=== PATIENT | female | born 1985 | race Caucasian/White ===

== ENCOUNTER 2017-03-28 15:29 | Emergency (ER) | END 2017-03-28 19:59 | disposition home or self-care (01) ==

== ENCOUNTER 2018-07-02 17:35 | Emergency (ER) | payer BC, MEDICAID ==
[~2018-07-02] VITALS: Ht 162.6 cm; Wt 56.3 kg
[~2018-07-02 17:35] MED LIST: ONDA8TAB14 PO; TRAM50TA2 PO
[2018-07-02 18:04] VITALS: BP 117/66; PULSE 71; RESP 16; Ht 162.6 cm; Wt 56.3 kg
[2018-07-02] MEDS ORDERED: CYCL10TA7 PO (18:38)
[2018-07-02] MEDS ORDERED: IBUP-1542 PO (18:38)
--- NOTE | 2018-07-02 19:52 | ERD ---
ER Documentation Chief Complaint Chief Complaint LOWER BACK PAIN RADIATING TO FEET HPI Patient is a 32-year-old female who presents the ER for concerns of left-sided pain which started 5 days ago. Patient states the pain is radiating down her left leg. Patient denied falls or trauma. Patient denies any difficulty ambulating. Patient states she did take 1 of her husbands [place] however she developed a rash that she stopped taking it. Patient denies any saddle anesthesia, urinary incontinence or stool incontinence.. Patient denies any chest pain, shortness of breath, fevers, chills, dysuria, urgency or hematuria. No abdominal pain. 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 ROS All systems reviewed and are negative except as per history of present illness. Medications Home Meds Active Scripts Cyclobenzaprine Hcl* (Cyclobenzaprine Hcl*) 10 Mg Tablet, 10 MG PO TID, #20 TAB Prov:AMA RIGGINS PA-C 07/02/18 Ibuprofen* (Motrin*) 600 Mg Tab, 600 MG PO Q6, #30 TAB Prov:AMA RIGGINS PA-C 07/02/18 Ondansetron (Ondansetron Odt) 8 Mg Tab.rapdis, 8 MG PO Q6H PRN for NAUSEA AND/OR VOMITING, #10 TAB Prov:ABDOUL GARCIA MD 03/28/17 Tramadol HCl (Tramadol HCl) 50 Mg Tablet, 50 MG PO Q4 PRN for PAIN, #20 TAB Prov:ABDOUL GARCIA MD 03/28/17 Allergies Allergies: Coded Allergies: hydrocodone (Verified Allergy, Intermediate, RASH, 07/02/18) PMhx/Soc Hx Alcohol Use: No Hx Substance Use: No Hx Tobacco Use: No FmHx Family History: No diabetes Physical Exam Vitals Vital Signs Date Temp Pulse Resp B/P (MAP) Pulse Ox O2 O2 Flow FiO2 Time Delivery Rate 07/02/18 98.1 71 16 117/66 100 18:04 (83) Physical Exam GENERAL: Well-developed, well-nourished female. Appears in no acute distress. HEAD: Normocephalic, atraumatic. EYES: Pupils are equally reactive bilaterally. EOMs grossly intact. No conjunctival erythema. ENT: Moist mucous membranes. No uvula deviation. No kissing tonsils. NECK: Supple. No meningismus. Normal range of motion of the neck. LUNG: Clear to auscultation bilaterally. No rhonchi, wheezing, rales or coarse breath sounds. HEART: Regular rate and rhythm. No murmurs, rubs or gallops. ABDOMEN: No pulsatile masses. No scars, ecchymosis or rashes noted. Soft, nontender, and nondistended. Positive bowel sounds in all four quadrants. No rebound tenderness, no guarding. (-) McBurney's point tenderness. No CVA tenderness. BACK: No midline tenderness. Tender to palpation of the left lumbar paraspinal muscles. Pain is reproducible. Positive straight leg raise on the left. EXTREMITIES: Equal pulses bilaterally. No peripheral clubbing, cyanosis or edema. No unilateral leg swelling. NEUROLOGIC: Alert and oriented. Moving all four extremities without any difficulty. Normal speech. Steady gait. SKIN: Normal color. Warm and dry. No rashes or lesions. Procedures/MDM MEDICAL DECISION MAKING: This is a 32-year-old female who presents with back pain. Vital signs were reviewed. Patient was afebrile. Patient denied any saddle anesthesia, urinary incontinence, bowel incontinence, night pain or recent trauma. Given the patient denied falls or trauma, there is no indication for imaging studies at this time. Patient did have left-sided lumbar paraspinal muscle pain. Patient did have positive straight leg raise on exam. Patient likely has lower back pain with sciatica. Low suspicion for cauda equine syndrome, spinal fractures, epidural abscess, spinal metastases, osteomyelitis, aortic dissection, ruptured or leaking AA, DJD, muscle spasm, pyelonephritis or nephrolithiasis. PRESCRIPTIONS: Cyclobenzaprine, ibuprofen Patient advised not to take muscle relaxant when driving or operating any machinery. Patient is agreeable with this plan. DISCHARGE: At this time, patient is stable for discharge and outpatient management. RICE therapy and ROM exercises were advised to avoid stiffness. I have instructed the patient to follow-up with his/her primary care physician in 1-2 days. I have discussed with the patient the possibility of needing to see an podiatrist orthopedic for further workup and imaging if the pain persists. I have instructed the patient to promptly return to the ER for any new or worsening symptoms including increased pain, swelling, warmth, urinary incontinence, stool incontinence, weakness or numbness. The patient and/or family expressed understanding of and agreement with this plan. All questions were answered. Home care instructions were provided. Disclaimer: Inadvertent spelling and grammatical errors are likely due to EHR/dictation software use and do not reflect on the overall quality of patient care. Also, please note that the electronic time recorded on this note does not necessarily reflect the actual time of the patient encounter. Departure Diagnosis: Primary Impression: Lower back pain Chronicity: acute Back pain laterality: left Sciatica presence: with sciatica Sciatica laterality: sciatica of left side Qualified Codes: M54.42 - Lumbago with sciatica, left side Condition: Fair Patient Instructions: Back Pain W/ Sciatica Referrals: [facility] YOU HAVE RECEIVED A MEDICAL SCREENING EXAM AND THE RESULTS INDICATE THAT YOU DO NOT HAVE A CONDITION THAT REQUIRES URGENT TREATMENT IN THE EMERGENCY DEPARTMENT. FURTHER EVALUATION AND TREATMENT OF YOUR CONDITION CAN WAIT UNTIL YOU ARE SEEN IN YOUR DOCTORS OFFICE WITHIN THE NEXT 1-2 DAYS. IT IS YOUR RESPONSIBILITY TO MAKE AN APPOINTMENT FOR FOLOW-UP CARE. IF YOU HAVE A PRIMARY DOCTOR --you should call your primary doctor and schedule an appointment IF YOU DO NOT HAVE A PRIMARY DOCTOR YOU CAN CALL OUR PHYSICIAN REFERRAL HOTLINE AT IF YOU CAN NOT AFFORD TO SEE A PHYSICIAN YOU CAN CHOSE FROM THE FOLLOWING [facility] [address] [facility]. [facility] [address] [facility]. [facility] [address] [facility] [address] [facility] [facility] [address] [facility]. [facility]. [address] [facility] [facility] YOU HAVE RECEIVED A MEDICAL SCREENING EXAM AND THE RESULTS INDICATE THAT YOU DO NOT HAVE A CONDITION THAT REQUIRES URGENT TREATMENT IN THE EMERGENCY DEPARTMENT. FURTHER EVALUATION AND TREATMENT OF YOUR CONDITION CAN WAIT UNTIL YOU ARE SEEN IN YOUR DOCTORS OFFICE WITHIN THE NEXT 1-2 DAYS. IT IS YOUR RESPONSIBILITY TO MAKE AN APPOINTMENT FOR FOLOW-UP CARE. IF YOU HAVE A PRIMARY DOCTOR --you should call your primary doctor and schedule and appointment IF YOU DO NOT HAVE A PRIMARY DOCTOR YOU CAN CALL OUR PHYSICIAN REFERRAL HOTLINE AT . IF YOU CAN NOT AFFORD TO SEE A PHYSICIAN YOU CAN CHOSE FROM THE FOLLOWING [facility] INSTITUTIONS: [facility] [address] [place] [address] [facility] [address] [place] [address] [facility] [address] [place] [address] Additional Instructions: Llame al doctor MAANA y akilah chloe MAURY PARA DENTRO DE 1-2 DAVIDSON.Dgale a la secretaria que nosotros le instruimos hacer esta maury.Avise o llame si coburn condicin se empeora antes de la maury. Regresa aqui si peor o no mejor. AMA RIGGINS PA-C July 02, 2018 19:52
[2018-07-03] MEDS ORDERED: TRAM50TA2 PO (22:54)
[2018-07-03] MEDS ORDERED: PRED20TA PO (22:54)
== END 2018-07-02 19:42 | disposition home or self-care (01) ==
LOC: E/R 17:35
DX: M54.42 Lumbago with sciatica, left side (principal)
CPT/HCPCS: 99283

== ENCOUNTER 2018-07-03 22:14 | Emergency (ER) | payer BC, MEDICAID ==
[~2018-07-03] VITALS: Ht 162.6 cm; Wt 56.7 kg
[~2018-07-03 22:14] MED LIST changes: +CYCL10TA7 PO; +IBUP-1542 PO
[2018-07-03 22:17] VITALS: BP 115/54; PULSE 80; RESP 16; Ht 162.6 cm; Wt 56.7 kg
[2018-07-03] MEDS ORDERED: KETOROLAC 15 MG INJ IM STA (22:40)
--- NOTE | 2018-07-03 22:53 | ERD ---
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 The patient denies saddle anesthesia. She denies any weakness or numbness or tingling to the face or extremities. She has not had any incontinence or retention of urine or stool. She denies any IV drug use. She denies any direct trauma or injury to the back. The patient symptoms are improved with rest and exacerbated by movement. The patient was evaluated yesterday and diagnosed with sciatica. She was discharged with Flexeril and ibuprofen. She reports that she has been taking these, but her symptoms have persisted. The patient denies feeling sick recently. The patient denies fever or chills. The patient has had no headache or vision changes. The patient does not endorse neck pain. The patient denies lightheadedness or dizziness. The patient has had no chest pain or trouble breathing. The patient denies nausea or vomiting. The patient denies abdominal pain. The patient denies changes to bowel movements or urination. ROS All systems reviewed and are negative except as per history of present illness. Medications Home Meds Active Scripts Cyclobenzaprine Hcl* (Cyclobenzaprine Hcl*) 10 Mg Tablet, 10 MG PO TID, #20 TAB Prov:AMA RIGGINS PA-C 07/02/18 Ibuprofen* (Motrin*) 600 Mg Tab, 600 MG PO Q6, #30 TAB Prov:AMA RIGGINS PA-C 07/02/18 Ondansetron (Ondansetron Odt) 8 Mg Tab.rapdis, 8 MG PO Q6H PRN for NAUSEA AND/OR VOMITING, #10 TAB Prov:ABDOUL GARCIA MD 03/28/17 Tramadol HCl (Tramadol HCl) 50 Mg Tablet, 50 MG PO Q4 PRN for PAIN, #20 TAB Prov:ABDOUL GARCIA MD 03/28/17 Allergies Allergies: Coded Allergies: hydrocodone (Verified Allergy, Intermediate, RASH, 07/02/18) PMhx/Soc History of Surgery: Yes (CHOLY) Anesthesia Reaction: No Hx Neurological Disorder: No Hx Respiratory Disorders: No Hx Cardiac Disorders: No Hx Psychiatric Problems: No Hx Miscellaneous Medical Probl: No Hx Alcohol Use: No Hx Substance Use: No Hx Tobacco Use: No Smoking Status: Never smoker FmHx Family History: No diabetes Physical Exam Vitals Vital Signs Date Temp Pulse Resp B/P (MAP) Pulse Ox O2 O2 Flow FiO2 Time Delivery Rate 07/03/18 98.8 80 16 115/54 100 22:17 (74) Physical Exam Const: No acute distress Head: Atraumatic Eyes: Normal Conjunctiva ENT: Normal External Ears, Nose and Mouth. Neck: Full range of motion. No meningismus. Resp: Clear to auscultation bilaterally Cardio: Regular rate and rhythm Abd: Soft, non tender, non distended. Normal bowel sounds. No palpable pulsatile mass. Skin: No petechiae or rashes Back: No midline or flank tenderness. No lumbar step-offs or deformities. Mild tenderness to the lumbar region and left paraspinal muscles with a positive left straight leg raise at approximately 30 degrees. Ext: No cyanosis, or edema. Neur: Awake and alert Psych: Normal Mood and Affect Results 24 hrs Current Medications Medications Dose Sig/[place] Start Time Status Last (Trade) Ordered Route PRN Stop Time Admin Dose Reason Admin Ketorolac 15 mg ONCE STAT 07/03/18 DC Tromethamine IM 22:40 (Toradol) 07/03/18 22:42 Prednisone 60 mg ONCE ONCE 07/03/18 (Prednisone) PO 23:00 07/03/18 23:01 Procedures/MDM MDM Previous medical records, if available, were reviewed. The patient presents for persistent low back pain radiating into the left leg. I agree with the assessment performed recently at our facility. The patient's symptoms are most consistent with sciatic back pain, potentially related to herniated disc from lifting heavy things while at work. A muscle strain is also possibility. There is no direct trauma or injury. I have very low suspicion for fracture or dislocation. The patient's symptoms are not consistent with cauda equina. The patient's symptoms are not consistent with epidural abscess o r osteomyelitis or other soft tissue infection. I have a low suspicion for an oncologic emergency given her overall presentation. The patient's symptoms are not consistent with abdominal aortic aneurysm, dissection or rupture. The patient does not endorse any urinary complaints. I have very low suspicion for a urinary tract infection, pyelonephritis or nephrolithiasis. TREATMENT/DISPOSITION The patient was treated with Toradol and prednisone in the emergency department. DISCHARGE Upon reevaluation of the patient, symptoms have improved. No emergent diagnoses were identified. At this time, I feel that the patient stable for discharge. The patient was instructed to follow-up with a primary care physician in 1-3 days. The patient will be given strict precautions with which to return to the emergency department. RICE therapy and ROM exercises were advised to avoid stiffness. I have discussed with the patient the possibility of needing to see an orthopedic designer for further workup and imaging if the pain persists. I have instructed the patient to promptly return to the ER for any new or worsening symptoms including increased pain, swelling, warmth, urinary incontinence, stool incontinence, weakness or numbness. The patient and/or family expressed understanding of and agreement with this plan. All questions were answered. Home care instructions were provided. Prescriptions: Prednisone, tramadol The patient's blood pressure was elevated at greater than 120/80 while in the emergency department. The patient was otherwise stable with no evidence of hypertensive urgency or emergency. The patient does not require admission for b lood pressure control. I have discussed with the patient the risks of hypertension. I have instructed the patient to return to the ER for any new or worsening symptoms including chest pain, shortness of breath, headache, blurred vision, confusion, nausea, vomiting or LOC. I have advised the patient to follow up with the primary care physician for outpatient monitoring and treatment for hypertension in 1-3 days. Disclaimer: Inadvertent spelling and grammatical errors are likely due to EHR/dictation software use and do not reflect on the overall quality of patient care. Note that the electronic time recorded on this note does not necessarily reflect the actual time of the patient encounter. Departure Diagnosis: Primary Impression: Lumbar back sprain Encounter type: initial encounter Qualified Codes: S33.5XXA - Sprain of ligaments of lumbar spine, initial encounter Additional Impression: Low back pain Chronicity: acute Back pain laterality: left Sciatica presence: with sciatica Sciatica laterality: sciatica of left side Qualified Codes: M54.42 - Lumbago with sciatica, left side Condition: Stable Patient Instructions: Back Pain W/ Sciatica, Herniated Intervertebral Disc Additional Instructions: Thank you for for coming to [facility] for your care today. Please ask your nurse or provider if you have questions about your care today and do not leave until all your questions have been answered. Please use any medications given as directed and follow-up with your doctor (or the doctor you were referred to) in the next 1-3 days. If you do not have a primary care doctor you may follow up at the [facility] or counts include 234 beds at the [facility] (listed below). You may also use motrin and tylenol as needed for fever and/or pain unless instructed otherwise by your provider or nurse. Indications for more urgent follow-up have been discussed, but you may return to the Emergency Department at ANY time for any worrisome or worsening symptoms. If you have abdominal pain, please know that no test or exam you received is perfect and you should follow up within 8 hours for continued pain. If you had any imaging studies today, such as an X-Ray or CT Scan, these studies will be reviewed later by a radiologist. You will be called if there are important findings that were not identified today, so make sure the contact information you provided at registration is correct. If you received any narcotic pain control medicine today, such as Vicodin, Morphine or Dilaudid, your coordination and judgment may be affected for a number of hours. Please do not drive or operate heavy machinery, and you may want someone to assist you at home. If you were given a prescription for narcotic medication, be aware that it is very addictive- use sparingly and only if necessary. PLEASE SEEK FURTHER EVALUATION AND MANAGEMENT AT YOUR DOCTORS OFFICE WITHIN THE NEXT 1-3 DAYS. IT IS YOUR RESPONSIBILITY TO MAKE AN APPOINTMENT FOR FOLOW-UP CARE. IF YOU HAVE A PRIMARY DOCTOR, PLEASE CALL THEIR OFFICE TO SCHEDULE AN APPOINTMENT FOR FOLLOW UP. IF YOU DO NOT HAVE A PRIMARY DOCTOR YOU CAN CALL OUR PHYSICIAN REFERRAL HOTLINE AT IF YOU CAN NOT AFFORD TO SEE A PHYSICIAN YOU CAN CHOSE FROM THE FOLLOWING [facility] CL[facility]: [facility] [address] [facility] [address] [facility] [address] [facility] [address] [facility] [address] [facility]. [facility] [address] JENNIFFER CLAY MD July 03, 2018 22:53
[2018-07-03] MEDS ORDERED: TRAM50TA2 PO (22:54)
[2018-07-03] MEDS ORDERED: PRED20TA PO (22:54)
[2018-07-03] MEDS ORDERED: predniSONE 20 MG TAB PO ONE (23:00)
== END 2018-07-03 23:17 | disposition home or self-care (01) ==
LOC: FTE 22:14
DX: S33.5XXA Sprain of ligaments of lumbar spine, initial encounter (principal); M54.42 Lumbago with sciatica, left side; X50.0XXA Overexertion from strenuous movement or load, initial encounter; Y92.89 Other specified places as the place of occurrence of the external cause
CPT/HCPCS: 81025; 96372; 99284; J1885; J7512

== ENCOUNTER 2018-07-08 13:00 | Emergency (ER) | payer BC, MEDICAID ==
[~2018-07-08] VITALS: Ht 162.6 cm; Wt 54.9 kg
[~2018-07-08 13:00] MED LIST changes: +PRED20TA PO
[2018-07-08 13:19] VITALS: BP 129/76; PULSE 89; RESP 19; Ht 162.6 cm; Wt 54.9 kg
--- NOTE | 2018-07-08 16:15 | ERD ---
ER Documentation Chief Complaint Chief Complaint was here for back pain 4 days ago, re evaluation HPI 32-year-old female patient with a past medical history of sciatica presents to the ED of wanting a new note for work. 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 Patient reports that her back pain has improved after taking prednisone and tramadol. Denies any chest pain, shortness of breath, nausea, vomiting, diarrhea, neck stiffness, fever, chills, saddle anesthesia, urine or bowel incontinence. ROS All systems reviewed and are negative except as per history of present illness. Medications Home Meds Active Scripts Tramadol HCl (Tramadol HCl) 50 Mg Tablet, 50 MG PO Q6 PRN for PAIN, #10 TAB Prov:JENNIFFER FAM MD 07/03/18 Prednisone* (Prednisone*) 20 Mg Tab, 40 MG PO DAILY for 4 Days, TAB Prov:JENNIFFER FAM MD 07/03/18 Cyclobenzaprine Hcl* (Cyclobenzaprine Hcl*) 10 Mg Tablet, 10 MG PO TID, #20 TAB Prov:AMA RIGGINS PA-C 07/02/18 Ibuprofen* (Motrin*) 600 Mg Tab, 600 MG PO Q6, #30 TAB Prov:AMA RIGGINS PA-C 07/02/18 Ondansetron (Ondansetron Odt) 8 Mg Tab.rapdis, 8 MG PO Q6H PRN for NAUSEA AND/OR VOMITING, #10 TAB Prov:ABDOUL GARCIA MD 03/28/17 Tramadol HCl (Tramadol HCl) 50 Mg Tablet, 50 MG PO Q4 PRN for PAIN, #20 TAB Prov:ABDOUL GARCIA MD 03/28/17 Allergies Allergies: Coded Allergies: hydrocodone (Verified Allergy, Intermediate, RASH, 07/02/18) PMhx/Soc History of Surgery: Yes (CHOLY) Anesthesia Reaction: No Hx Neurological Disorder: No Hx Respiratory Disorders: No Hx Cardiac Disorders: No Hx Psychiatric Problems: No Hx Miscellaneous Medical Probl: No Hx Alcohol Use: No Hx Substance Use: No Hx Tobacco Use: No Smoking Status: Never smoker FmHx Family History: No diabetes, No coronary disease Physical Exam Vitals Vital Signs Date Temp Pulse Resp B/P (MAP) Pulse Ox O2 O2 Flow FiO2 Time Delivery Rate 07/08/18 98.4 89 19 129/76 100 13:19 (93) Physical Exam Const: [id number], well-nourished. In no acute distress. Head: Atraumatic, normocephalic Eyes: Normal Conjunctiva without injection. No purulent discharge. ENT: Normal external ear, nose. Moist oropharynx without tonsillar exudates. Non-erythematous pharynx. Uvula midline. No drooling. No trismus. Neck: No cervical midline tenderness. Full range of motion. No meningismus. No cervical lymphadenopathy. No JVD. Resp: Clear to auscultation bilaterally. No wheezing, rhonchi, rales, or crackles. No accessory muscle use. No retractions. Cardio: Regular rate and rhythm. No murmurs, rubs or gallops. Abd: Soft, nontender, non distended. Normal bowel sounds. No palpable masses. No rebound tenderness. No guarding. Negative McBurney's point. Negative psoas sign. Negative obturator sign. Skin: No petechiae or rashes Back: No midline tenderness. No CVA tenderness. Full range of motion with flexion, extension, rotational movements. Ext: No cyanosis, or edema. Neur: Awake and alert. Normal gait. Normal coordination. Psych: Normal Mood and Affect Procedures/MDM 32-year-old female patient is here for a new note for work and states that her back pain has improved from her previous 2 visits after taking prednisone and tramadol. Reports that she has full range of motion of her lower back with flexion, extension, rotational movements. Patient is afebrile and nontoxic- appearing. She would like to go back to work, therefore she instructed to use proper body mechanics for lifting. Patient should not lift more than 10 pounds. Patient is ambulating here in the ED without difficulty. Denies saddle anesthesia, numbness or tingling, urine or bowel incontinence, weakness. Low suspicion for cauda equina syndrome, cord compression, nephrolithiasis, aortic aneurysm, aortic dissection, epidural abscess, spinal hematoma, malignancy, pyelonephritis, or other emergent conditions. Diagnosis: Back Pain Follow up with primary care physician in 1-2 days. Instructed patient to return to the ED sooner for any worsening symptoms. Patient's questions were answered. Patient is hemodynamically stable. Patient understood and agreed with discharge plan. Patient discharged stable. Disclaimer: Inadvertent spelling and grammatical errors are likely due to EHR/dictation software use and do not reflect on the overall quality of patient care. Also, please note that the electronic time recorded on this note does not necessarily reflect the actual time of the patient encounter. Departure Diagnosis: Primary Impression: Back pain Back pain location: back pain in unspecified location Chronicity: unspecified Back pain laterality: unspecified Qualified Codes: M54.9 - Dorsalgia, unspecified Condition: Stable Patient Instructions: Back Safety: Lifting, Back Pain (Acute Or Chronic) [facility] Usted se alcala hecho un examen mdico de control que le indica que no est en chloe condicin que requiera tratamiento urgente en el Departamento de Emergencia. Un estudio ms profundo y el tratamiento de coburn condicin pueden esperar sin ningn riesgo hasta que usted sea atendida/o en el consultorio de coburn mdico o chloe clnica. Es responsabilidad suya arreglar chloe maury para el seguimiento del mai. MANEJO DE CONDICIONES NO URGENTES EN EL FUTURO 1) Si usted tiene un mdico de atencin primaria: Usted debera llamar a coburn mdico de atencin primaria antes de venir al departamento de emergencia. Despus de las horas de consultorio, coburn doctor o coburn asociado/a est disponible por telfono. El mdico o enfermero de selwyn en el servicio telefnico puede asesorarle por hari medio para atender el problema, o mai contrario se puede programar chloe maury. 2) Si usted no tiene un mdico de atencin primaria: Llame al mdico o clnica de referencia que aparece abajo edilma las horas de consultorio para hacer chloe muary para que le vean. CLINICAS: [facility] [phone] [facility] [phone] [address] [facility] [phone] [place] [id number] [phone] [facility] [phone] [address] [facility]. [phone] [address] [facility] () Usted se alcala hecho un examen mdico de control que le indica que no est en chloe condicin que requiera tratamiento urgente en el Departamento de Emergencia. Un estudio ms profundo y el tratamiento de coburn condicin pueden esperar sin ningn riesgo hasta que usted sea atendida/o en el consultorio de coburn mdico o chloe clnica. Es responsabilidad suya arreglar chloe maury para el seguimiento del mai. MANEJO DE CONDICIONES NO URGENTES EN EL FUTURO 1) Si usted tiene un mdico de atencin primaria: Usted debera llamar a coburn mdico de atencin primaria antes de venir al departamento de emergencia. Despus de las horas de consultorio, coburn doctor o coburn asociado/a est disponible por telfono. El mdico o enfermero de selwyn en el servicio telefnico puede asesorarle por hari medio para atender el problema, o mai contrario se puede programar chloe maury. 2) Si usted no tiene un mdico de atencin primaria: Llame al mdico o condado institucions de referencia que aparece abajo edilma las horas de consultorio para hacer chloe maury para que le vean. SI USTED NO PUEDE PAGAR PARA MCKENZIE UN MEDICO puede ir a: [facility] [address] [place] [address] [facility] [address] [place] [address] [facility] [address] [place] [address] [facility] [address] [place], [place] [id number] Additional Instructions: Llame al doctor MAANA y akilah chloe MAURY PARA DENTRO DE 2-3 DAVIDSON.Dgale a la secretaria que nosotros le instruimos hacer esta maury.Avise o llame si coburn condicin se empeora antes de la maury. Regresa aqui si peor o no mejor. CHAVA BARRON PA-C July 08, 2018 16:14
== END 2018-07-08 16:24 | disposition home or self-care (01) ==
LOC: FTE 13:00
DX: M54.5 Low back pain (principal)
CPT/HCPCS: 99282